=== PATIENT | male | born 1960 | race Caucasian/White ===

== ENCOUNTER → 2016-06-17 | Outpatient (CLI) | payer BC ==
[~2016-06-17] MED LIST: ASPI1TAB69 PO; CLON1 PO; D3400TAB PO; ESSE250T PO; FISH1000 PO; HYDR-3366 PO; LEVO.05 PO; MULTCAP13 PO; NEXI40CA PO; PROP10TA6 PO
[2016-06-17 14:09] LABS: MEAN CORPUSCULAR HGB CONC 36.7 % (32.0-36.0)
[2016-06-17 14:59] LABS: BLOOD, URINE NEG (NEG); GLUCOSE,URINE NEG (NEG); KETONE, URINE NEG (NEG); NITRITE,URINE NEG (NEG); SQUAMOUS EPITHELIAL CELL URINE <1 /hpf (0-5); URINE COLOR YELLOW (YELLW/STRAW)
[2016-06-17 14:59] LABS: BASOPHIL % 0.9 % (0.0-2.0); EOSINOPHIL # 0.1 TH/MM3 (0-0.4); EOSINOPHIL % 2.5 % (0.0-4.0); LYMPH % 17.8 % (9.0-44.0); MEAN CELL VOLUME 88.5 FL (80.0-100.0); MEAN CORPUSCULAR HEMOGLOBIN 32.5 PG (27.0-34.0); MONO % 7.9 % (0.0-8.0); NEUT % 70.9 % (16.0-70.0); PLATELET COUNT 174 TH/MM3 (150-450); RED BLOOD COUNT 4.64 MIL/MM3 (4.50-5.90); RED CELL DISTRIBUTION WIDTH 15.1 % (11.6-17.2); WHITE BLOOD COUNT 5.6 TH/MM3 (4.0-11.0)
[2016-06-17 15:03] LABS: COMMENT (UR) CULT NOT INDICATED; CULTURE IF INDICATED CULT NOT INDICATED
[2016-06-17 15:07] LABS: HEMO FLAGS AUTO DIFF
[2016-06-17 15:11] LABS: APTT (PATIENT) 28.2 SEC (24.3-30.1); PROTHROMBIN TIME - PATIENT 10.7 SEC (9.8-11.6)
--- NOTE | 2016-06-17 15:18 | RADRPT ---
EXAM DATE/TIME: 06/17/2016 14:59 [place] COMPARISON: No previous studies available for comparison. INDICATIONS : Evaluate for pneumonia,pneumothorax and communicable diseases. Pre-op Replace pain pulse generator MEDICAL HISTORY : None. SURGICAL HISTORY : Pain stimulator ENCOUNTER: Initial ACUITY: 1 day PAIN SCORE: 0/10 LOCATION: chest FINDINGS: PA and lateral views of the chest demonstrate the lungs to be symmetrically aerated without evidence of mass, infiltrate or effusion. The cardiomediastinal contours are unremarkable. Osseous structure s are intact. There are spinal leads in place. The superior leads are seen over the T7 level and the more inferior leads are seen over the T8-9 level. CONCLUSION: No acute disease. Srikanth Landaverde MD on June 17, 2016 at 15:13 Board Certified Radiologist. This report was verified electronically.
[2016-06-17 15:23] LABS: ALT (GPT) 47 U/L (12-78); ANION GAP 7 MEQ/L (5-15); AST (GOT) 17 U/L (15-37); BICARBONATE 28.8 MEQ/L (21.0-32.0); BLOOD UREA NITROGEN 16 MG/DL (7-18); CHLORIDE 106 MEQ/L (98-107); GLOMERULAR FILTRATION RATE 53 ML/MIN (>89); GLUCOSE,FASTING 79 MG/DL (74-99); POTASSIUM 4.5 MEQ/L (3.5-5.1); SODIUM (NA) 142 MEQ/L (136-145)
[2016-06-17 15:24] LABS: ALKALINE PHOSPHATASE 78 U/L (45-117); TOTAL BILIRUBIN ADULT 0.9 MG/DL (0.2-1.0)
[2016-06-17 15:56] LABS: SCAN/DIFF AUTO DIFF CONFIRMED
--- NOTE | 2016-06-18 14:47 | EKG ---
Date Performed: 06/17/2016 Time Performed: 14:28:33 PTAGE: 55 years EKG: Sinus rhythm INCOMPLETE RIGHT BUNDLE BRANCH BLOCK BORDERLINE ECG NO PREVIOUS TRACING DOCTOR: Valdez Todd Interpretating Date/Time 06/18/2016 14:40:41
== END ==
LOC: CPRE 14:01
PROVIDERS: ATTEND Neurological Surgery
DX: G89.29 Other chronic pain (principal); R94.31 Abnormal electrocardiogram [ECG] [EKG]
CPT/HCPCS: 36415; 71020; 80053; 81001; 85025; 85610; 85730; 93005